=== PATIENT | male | born 1970 | race African-American/Black ===

== ENCOUNTER 2020-06-02 20:13 | Emergency (ER) | payer OTHER ==
[2020-06-02 20:22] VITALS: TEMP 98.1; BMI 27.1
[2020-06-02] MEDS ORDERED: LOSARTAN 50MG/HCTZ 12.5MG 1 TAB PO ONE (20:41)
[2020-06-02] MEDS ORDERED: amLODIPine BESYLATE 10 MG TABLET (FP) PO ONE (20:42)
[2020-06-02] MEDS ORDERED: HYDROCHLOROTHIAZIDE 25 MG TABLET (FP) PO ONE (20:42)
[2020-06-02] MEDS ORDERED: LOSARTAN POTASSIUM 50 MG TABLET PO ONE (20:43)
[2020-06-02] MEDS ORDERED: HYDROCHLOROTHIAZIDE 25 MG TABLET (FP) ONE (20:54)
[2020-06-02] MEDS ORDERED: amLODIPine BESYLATE 5 MG TABLET (FP) ONE (20:54)
[2020-06-02] MEDS ORDERED: LOSARTAN POTASSIUM 50 MG TABLET ONE (20:55)
[2020-06-02 21:34] LABS: BASO % 0.5 % (0-2.0); EOS % 0.5 % (0-4.5); HEMATOCRIT 44.4 % (35.4-49); LYMPH % 15.7 % (8-40); MCH 31.2 pg (25.7-33.7); MCHC 33.9 g/dl (32.0-35.9); MONO % 4.9 % (3.8-10.2); NEUT % 78.4 % (42.8-82.8); PLATELET COUNT 145 K/MM3 (134-434); RBC 4.82 M/mm3 (4.00-5.60); RDW 13.5 % (11.9-15.9); WHITE BLOOD COUNT 5.8 K/mm3 (4.0-10.0)
[2020-06-02 21:47] LABS: CHLORIDE 107 mmol/L (98-107); SODIUM 142 mmol/L (136-145)
[2020-06-02 21:49] LABS: ALBUMIN 4.3 g/dl (3.4-5.0); ANION GAP 4 MMOL/L (8-16); BLOOD UREA NITROGEN 14.2 mg/dL (7-18); CALCIUM 9.2 mg/dL (8.5-10.1); CO2 32 mmol/L (21-32)
[2020-06-02 21:50] LABS: GLUCOSE,RANDOM 92 mg/dL (74-106)
[2020-06-02 21:53] LABS: CREATININE 1.3 mg/dL (0.55-1.3); SGOT/AST 42 U/L (15-37); SGPT/ALT 62 U/L (13-61)
[2020-06-02 21:55] LABS: TOT PROT 7.2 g/dl (6.4-8.2)
[2020-06-02 21:56] LABS: ALK PHOS 79 U/L (45-117)
[2020-06-02] MEDS ORDERED: LABETALOL HCL 5 MG/1 ML (100MG/20 ML VIAL) IVPUSH ONE ×2 (22:52→23:31)
[2020-06-02] MEDS ORDERED: LABETALOL HCL 5 MG/1 ML (100MG/20 ML VIAL) ONE (23:42)
[2020-06-03] MEDS ORDERED: hydrALAZINE HCL 20 MG/ML VIAL IVPUSH ONE (00:05)
[2020-06-03] MEDS ORDERED: hydrALAZINE HCL 20 MG/ML VIAL ONE (00:07)
[2020-06-03 00:32] VITALS: BP 175/112; PULSE 68
== END 2020-06-03 01:02 | disposition home or self-care (01) ==
LOC: JER 20:13 → UNDOADMIN 21:19 → JERBED 21:19
PROC: 3E033GC Introduction of Other Therapeutic Substance into Peripheral Vein, Percutaneous Approach (ICD-10-PCS; principal; 2020-06-02)
PROC: 3E033GC Introduction of Other Therapeutic Substance into Peripheral Vein, Percutaneous Approach (ICD-10-PCS; 2020-06-02)
DX: I10 Essential (primary) hypertension (principal)
CPT/HCPCS: 36415; 80053; 84484; 85025; 93005; 93010; 99284-25